=== PATIENT | male | born 1960 | race Caucasian/White ===

== ENCOUNTER 2016-12-17 13:43 | Emergency (ER) | payer OTHER ==
--- NOTE | 2016-12-17 15:10 | ED GENERAL ADULT ---
History of Present Illness General Chief Complaint: Abdominal Pain/Flank Pain Stated Complaint: R SIDE FLANK/ABD PAIN SINCE 11AM Source: patient, family Exam Limitations: no limitations Allergies Coded Allergies: clarithromycin (ITCHING 12/17/16) codeine (NAUSEA 12/17/16) Triage Note: PER PT SINCE 1100 INTENSE PAIN TO RUQ ? GAS ATE ALOT OF BEANS LAST NIGHT. FEELS LIKE INTESTINES ARE KNOTTED UP .LAST BM THIS AM Triage Nurses Notes Reviewed? yes HPI: 56-year-old man with past medical history of hypertension, hyperlipidemia, and retinal detachment seen for evaluation of acute onset right flank/abdomen/groin pain/discomfort. She was in his normal state of health when around 11 AM this morning he experienced acute onset pain in his right flank with radiation to his groin. He reports multiple small volume bowel movements with flatus at did not change his symptoms since onset. He denies any bloody urine or urinary discomfort. Additionally he denies any trauma or recent antibiotic use. Otherwise he also denies any headache, fever, chills, chest pain, palpitations, shortness of breath, nausea, vomiting, diarrhea. (PHIL BELLO MD) Vital Signs & Intake/Output Vital Signs & Intake/Output Vital Signs Date Time Temp Pulse Resp B/P Pulse O2 O2 Flow FiO2 Ox Delivery Rate 12/17 1654 98.6 76 18 126/85 98 Room Air 12/17 1359 98.6 85 22 167/90 98 Reconcile Medications Ibuprofen 800 MG TABLET 1 TAB PO TID PRN PAIN Ondansetron (Zofran Odt) 4 MG TAB.RAPDIS 1 TAB PO Q6 PRN NAUSEA Oxycodone HCl/Acetaminophen (Percocet 5-325 MG Tablet) 5 MG-325 MG TABLET 1 TAB PO Q4-6 PRN BREAKTHROUGH PAIN Tamsulosin HCl (Flomax) 0.4 MG CAP.ER.24H 1 CAP PO DAILY KIDNEY STONE (URI DAVILA,SHANTELLE) Past History Travel History Traveled to [place] past 21 day No Medical History Any Pertinent Medical History? none Neurological: NONE EENT: RETINAL DETACHMENT Cardiovascular: HTN, CHOL Respiratory: NONE Gastrointestinal: NONE Hepatic: NONE Renal: NONE Endocrine: NONE Blood Disorders: NONE Surgical History Surgical History: non-contributory Psychosocial History What is your primary language Macedonian Tobacco Use: Never used Family History Hx Contributory? No (PHIL BELLO MD) Review of Systems Review of Systems Constitutional: Reports: see HPI. (PHIL BELLO MD) Physical Exam Physical Exam General Appearance: well developed/nourished, anxious, mild distress Comments: General -well-developed, well-nourished obese man in mild distress HEENT - NCAT, PERRL, EOMI, anicteric sclera, sunglasses in place for history of retinal detachment Cardio - S1, S2 w/o murmurs/gallops/rubs Resp - CTA bilaterally w/o wheezing/rhochi/crackles GI - soft, nontender, nondistended, bowel sounds present, no CVA tenderness Neuro - Awake and alert, CN II - XII grossly intact Extremities - no edema, pulses intact Core Measures ACS in differential dx? No CVA/TIA Diagnosis: No Severe Sepsis Present: No Septic Shock Present: No (PHIL BELLO MD) Progress Differential Diagnoses I considered the following diagnoses in my evaluation of the patient: Renal colic, diverticulitis, gas Initial ED EKG: none Comments: Complete blood count demonstrated a leukocytosis of 17,000. CT abdomen/pelvis without contrast demonstrated an obstructive 2.4 mm stone at the right ureter ureterovesicular junction. Urinalysis did not demonstrate any obvious findings of a urinary tract infection. Patient was given IM Toradol for pain relief. (PHIL BELLO MD) Differential Diagnoses I considered the following diagnoses in my evaluation of the patient: Plan of Care: Orders Procedure Date/time Status CULTURE,URINE 12/17 1457 Active URINALYSIS 12/17 1456 Complete COMPREHENSIVE METABOLIC PANEL 12/17 1456 Complete CBC WITHOUT DIFFERENTIAL 12/17 1456 Complete Laboratory Tests 12/17/16 1516: Anion Gap 8, Estimated GFR > 60, BUN/Creatinine Ratio 18.9, Glucose 111 H, Calcium 9.2, Total Bilirubin 0.9, AST 35, ALT 57, Alkaline Phosphatase 45, Total Protein 6.6, Albumin 4.2, Globulin 2.4, Albumin/Globulin Ratio 1.8, CBC w Diff MAN DIFF ORDERED, RBC 5.59, MCV 87.2, MCH 29.0, RDW 12.7, MPV 8.2, Gran % 93.1 H, Lymphocytes % 3.7 L, Monocytes % 2.9, Eosinophils % 0.1, Basophils % 0.2, Absolute Granulocytes 16.1 H, Absolute Lymphocytes 0.6 L, Absolute Monocytes 0.5, Absolute Eosinophils 0, Absolute Basophils 0, Platelet Estimate ADEQUATE, Normocytic RBCs VERIFIED, Normochromic RBCs VERIFIED, PUBS MCHC 33.3 12/17/16 1505: Urinalysis LIGHT H, Urine Color YEL, Urine Clarity CLEAR, Urine pH 6.0, Ur Specific Theodore >= 1.030, Urine Protein TRACE H, Urine Ketones NEG, Urine Nitrite NEG, Urine Bilirubin NEG, Urine Urobilinogen 0.2, Ur Leukocyte Esterase NEG, Ur Microscopic SEDIMENT EXAMINED, Urine RBC 1-3, Urine WBC RARE, Ur Epithelial Cells RARE, Urine Mucus FEW, Urine Hemoglobin NEG, Urine Glucose NEG Microbiology 12/17 1546 URINE ROUT: Urine Culture - RECD Diagnostic Imaging: Viewed by Me: CT Scan. Discussed w/RAD: CT Scan. Radiology Impression: PATIENT: ALYSHA COLEY PRESENT AGE: 56 PATIENT ACCOUNT NO: [id number] : 61 LOCATION: [facility] ORDERING PHYSICIAN: PHIL BELLO MD SERVICE DATE: 12/17/16 EXAM TYPE: CAT - CT ABD & PELVIS W/O IV CONTRAS EXAMINATION: CT ABDOMEN AND PELVIS WITHOUT CONTRAST CLINICAL INFORMATION: Renal colic versus colitis. COMPARISON: No relevant prior imaging is available. TECHNIQUE: Multidetector volumetric imaging was performed from the superior aspect of the liver through the pubic symphysis. Sagittal and coronal reformatted images were obtained on the technologist's workstation. DLP: 313.76 mGy-cm FINDINGS: LUNG BASES: Lung bases are clear. There is no pleural or pericardial effusion. LIVER, GALLBLADDER, AND BILIARY TREE: The unenhanced liver attenuation is homogeneous there is no evidence of a discrete hepatic mass. The gallbladder is unremarkable with no evidence of radiopaque gallstones, gallbladder wall thickening, or obvious pericholecystic inflammatory changes. PANCREAS: Unremarkable. SPLEEN: Unremarkable. ADRENAL GLANDS: Unremarkable. KIDNEYS AND URETERS: There is a an obstructive 2.4 mm calculus located at the right ureteropelvic junction. There is asymmetric hydroureteronephrosis on the right side and asymmetric stranding within the right perinephric fat. These findings are consistent with obstructive uropathy of the right kidney. The unenhanced left kidney is normal. BLADDER: The urinary bladder is partially decompressed. GASTROINTESTINAL TRACT: The stomach and small bowel are normal. The colon and appendix are normal. ABDOMINAL WALL: The abdominal wall is intact. There is a tiny fat-containing umbilical hernia. LYMPH NODES: No worrisome mesenteric or retroperitoneal adenopathy. VASCULAR: The unenhanced abdominal aorta and inferior vena cava are unremarkable. PELVIC VISCERA: The prostate gland is unremarkable. No abnormal perirectal or presacral inflammation. OSSEOUS STRUCTURES: There is no acute osseous finding. Specifically no worrisome lytic or blastic osseous lesion. IMPRESSION: There is a 2.4 mm obstructive calculus located within the right ureter at the ureterovesicular junction. No additional nonobstructive calculi are visualized within either kidney. DICTATED BY: ELHAM MARINO MD DATE/TIME DICTATED:12/17/161544 SUPERVISOR SCREEN MAKING:CAIITE DATE /TIME TRANSCRIBED:12/17/161544 CONFIDENTIAL, DO NOT COPY WITHOUT APPROPRIATE AUTHORIZATION. <Electronically signed in Other Vendor System> SIGNED BY: ELHAM MARINO MD 12/17/16 1559 (SHANTELLE GREWAL MD) Departure Departure Condition: Stable Clinical Impression Primary Impression: Nephrolithiasis Departure Forms: Customer Survey General Discharge Information (ACE DAVILA,PHIL) Departure Disposition: HOME OR SELF CARE Referrals: GURPREET DAVILA,ZOË Woo (PCP/Family) IVY ESCAMILLA MD Additional Instructions: Take the motrin, percocet, zofran and flomax as directed. Use the urinary strainer as directed. Follow up with Dr. Escamilla in the office. REturn to the ER for any changing or worsenign symptoms. Prescriptions: Current Visit Scripts Ibuprofen 1 TAB PO TID PRN PAIN #30 TAB Tamsulosin HCl (Flomax) 1 CAP PO DAILY #14 CAP Ondansetron (Zofran Odt) 1 TAB PO Q6 PRN NAUSEA #20 TAB Oxycodone HCl/Acetaminophen (Percocet 5-325 MG Tablet) 1 TAB PO Q4-6 PRN BREAKTHROUGH PAIN #15 TAB Resident Co-Sign Statement Statement: ED Attending supervision documentation- [X] I saw and evaluated the patient. I have also reviewed all the pertinent lab results and diagnostic results. I agree with the findings and the plan of care as documented in the Resident's documentation. [X] I have reviewed the ED Record and agree with the Resident's documentation. [] Additions or exceptions (if any) to the Resident's note and plan are summarized below: [] (URI DAVILA,SHANTELLE) Critical Care Note Critical Care Note Critical Care Time: non-applicable (ACE DAVILA,PHIL)
[2016-12-17 15:24] LABS: ABSOLUTE BASOPHIL COUNT 0 /CUMM (0.0-0.2); ABSOLUTE EOSINOPHIL COUNT 0 /CUMM (0.0-0.7); ABSOLUTE GRANULOCYTE CT 16.1 /CUMM (1.4-6.5); ABSOLUTE LYMPH COUNT 0.6 /CUMM (1.2-3.4); ABSOLUTE MONOCYTE COUNT 0.5 /CUMM (0.10-0.60); BASOPHIL % 0.2 % (0.0-2.0); EOSINOPHIL % 0.1 % (0-5); GRANULOCYTE % 93.1 % (42.2-75.2); HEMATOCRIT 48.7 % (42-52); MEAN CORPUSCULAR HGB CONC 33.3 G/DL (33.0-37.0); MEAN CORPUSCULAR VOLUME 87.2 FL (80.0-94.0); MEAN PLATELET VOLUME 8.2 FL (7.4-10.4); PLATELET COUNT 209 /CUMM (130-400); RBC DISTRIBUTION WIDTH 12.7 % (11.5-14.5); RED BLOOD CELL CT 5.59 /CUMM (4.70-6.10); WHITE BLOOD CELL COUNT 17.2 /CUMM (4.8-10.8)
--- NOTE | 2016-12-17 15:54 | CT SCAN REPORT ---
EXAMINATION: CT ABDOMEN AND PELVIS WITHOUT CONTRAST CLINICAL INFORMATION: Renal colic versus colitis. COMPARISON: No relevant prior imaging is available. TECHNIQUE: Multidetector volumetric imaging was performed from the superior aspect of the liver through the pubic symphysis. Sagittal and coronal reformatted images were obtained on the technologist's workstation. DLP: 313.76 mGy-cm FINDINGS: LUNG BASES: Lung bases are clear. There is no pleural or pericardial effusion. LIVER, GALLBLADDER, AND BILIARY TREE: The unenhanced liver attenuation is homogeneous there is no evidence of a discrete hepatic mass. The gallbladder is unremarkable with no evidence of radiopaque gallstones, gallbladder wall thickening, or obvious pericholecystic inflammatory changes. PANCREAS: Unremarkable. SPLEEN: Unremarkable. ADRENAL GLANDS: Unremarkable. KIDNEYS AND URETERS: There is a an obstructive 2.4 mm calculus located at the right ureteropelvic junction. There is asymmetric hydroureteronephrosis on the right side and asymmetric stranding within the right perinephric fat. These findings are consistent with obstructive uropathy of the right kidney. The unenhanced left kidney is normal. BLADDER: The urinary bladder is partially decompressed. GASTROINTESTINAL TRACT: The stomach and small bowel are normal. The colon and appendix are normal. ABDOMINAL WALL: The abdominal wall is intact. There is a tiny fat-containing umbilical hernia. LYMPH NODES: No worrisome mesenteric or retroperitoneal adenopathy. VASCULAR: The unenhanced abdominal aorta and inferior vena cava are unremarkable. PELVIC VISCERA: The prostate gland is unremarkable. No abnormal perirectal or presacral inflammation. OSSEOUS STRUCTURES: There is no acute osseous finding. Specifically no worrisome lytic or blastic osseous lesion. IMPRESSION: There is a 2.4 mm obstructive calculus located within the right ureter at the ureterovesicular junction. No additional nonobstructive calculi are visualized within either kidney.
[2016-12-17] MEDS ORDERED: FLOMAX0.4 M1 PO (16:24)
[2016-12-17] MEDS ORDERED: IBUPROFEN800 M1 PO (16:24)
[2016-12-17] MEDS ORDERED: ZOFRAN ODT4 M1 PO (16:25)
[2016-12-17] MEDS ORDERED: PERCOCET 5-3251 EACH PO (16:25)
[2016-12-17 16:54] VITALS: BP 126/85
[2017-01-01] MEDS ORDERED: ATORVASTATIN CA10 M1 PO (19:18)
[2017-01-01] MEDS ORDERED: LISINOPRIL10 M1 PO (19:18)
[2017-01-01] MEDS ORDERED: EFFEXOR XR37.5 M1 PO (19:19)
== END 2016-12-17 16:55 ==
LOC: ERH 13:43
PROVIDERS: Internal Medicine Interventional Cardiology
DX: N20.0 Calculus of kidney (principal)
CPT/HCPCS: 74176; 81001; 87086; 96374; J1885

== ENCOUNTER → 2017-01-06 | Day surgery (SDC) | payer OTHER ==
[~2017-01-06] VITALS: Ht 175.3 cm; Wt 73.5 kg
[~2017-01-06] MED LIST: ATORVASTATIN CA10 M1 PO; EFFEXOR XR37.5 M1 PO; FLOMAX0.4 M1 PO; IBUPROFEN800 M1 PO; LISINOPRIL10 M1 PO; PERCOCET 5-3251 EACH PO; ZOFRAN ODT4 M1 PO
--- NOTE | 2017-01-06 16:11 | Operative Report ---
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 This put him at risk for infection and each time this occurred he needed to be treated with antibiotic eyedrops. Eventually the leaking would cease. It did recur more than half a dozen times in the last 3-4 months. The patient was therefore offered a revision of trabeculectomy to remove the damaged tissue and recover the ostium site with fresh conjunctival material. The patient agreed to this and signed consent. The patient was brought to the operating room and standard monitoring equipment was attached. The patient was prepped and draped in the usual fashion for sterile intraocular surgery. A lid speculum was used to retract the lids. The case was begun by making a paracentesis site temporally. Attention was turned to the superior a surgical site and the previous bleb was outlined using a 69 blade. Anesthesia was provided by infusing underneath the conjunctiva and tenons tissue with a [id number] mixture of lidocaine and Marcaine. The bleb was resected from the surface of the eye using a combination of the 69 blade and Dylan scissors. Was a fine clear membrane overlying the trabeculectomy site this was left pretty much intact. A Vannas scissors were used to dissect between this layer and the tenons and conjunctival surfaces and then the Dylan scissors was used to make a plane between the conjunctiva and the tenons tissue. Enough blunt dissection was carried out to free up enough of the conjunctiva to draped it over the superior corneal limbus. Was then tacked down to the cornea using 5 interrupted 10-0 nylon sutures on a vascular needle. Aspirates were trimmed and buried. The eye was inflated with balanced salt solution through the paracentesis site. An umbilical leakage through the main bleb area. The area was now much flatter and the flow coming out of the eye into the bleb space was much more diffuse. Speculum was removed from the orbit and the eye was patched over antibiotic drops steroid drops and a combination of antibiotic and steroid ointment. The eye was then shielded. Patient was removed from the operating room in stable condition and brought to same-day surgery having tolerated the procedure well.
== END ==
LOC: STS 03:30
DX: H44.4 Hypotony of eye (principal); I10 Essential (primary) hypertension
CPT/HCPCS: J2001; J2250